=== PATIENT | male | born 1985 | race Caucasian/White ===

== ENCOUNTER 2017-02-11 12:49 | Emergency (ER) | payer BC, OTHER ==
[~2017-02-11] VITALS: Ht 182.9 cm; Wt 87.1 kg
[~2017-02-11 12:49] MED LIST: ACHD5005 PO
--- NOTE | 2017-02-11 14:03 | ED GU-Male ---
General Chief Complaint: -Male Stated Complaint: L TESTICLE PAIN/LUM Nursing Triage Note: PT CO OF LEFT TESTICLE HURTING, PT STATES HAS HAD A LUMP, BUT LUMP HAS BECOME PAINFUL AT TIMES, WORSE PAST 3 DAYS 06/05 Source: patient Exam Limitations: no limitations History of Present Illness Time seen by provider: 14:02 Initial Comments To ER with left testicular discomfort. This is been intermittent for about a month. States is not really painful just an unusual "full" sensation. Sometimes he feels a lump at the inferior aspect left testicle. No dysuria. Timing/Duration: intermittent Severity/Quality: moderate Location: scrotal Radiation: none Activities at Onset: none Prior Genitourinary Problems: none Associated Symptoms: dysuria Allergies and Home Medications Allergies Coded Allergies: No Known Drug Allergies (Unverified , 02/11/17) Home Medications No Active Prescriptions or Reported Meds Constitutional: see HPI EENTM: see HPI Respiratory: no symptoms reported Cardiovascular: no symptoms reported Genitourinary: see HPI Musculoskeletal: no symptoms reported Skin: no symptoms reported Past Hkcmhaf-Lqccll-Dijgix Hx Patient Social History Alcohol Use: Past History Recreational Drug Use: Yes (POT) Smoking Status: Current Everyday Smoker Type Used: Cigarettes Recent Foreign Travel: No Contact w/Someone Who Travel: No Recent Infectious Disease Expo: No Recent Hopitalizations: No Gastrointestinal Gastrointestinal Disorders: Gastroesophageal Reflux, Ulcer Physical Exam Vital Signs Vital Sign - Last 12Hours 02/11/17 13:40 Temp 98.2 Pulse 65 Resp 18 B/P (MAP) 159/89 Pulse Ox 99 Capillary Refill : Less Than 3 Seconds General Appearance: WD/WN, no apparent distress HEENT: PERRL/EOMI, normal ENT inspection Neck: non-tender, full range of motion Respiratory: no respiratory distress, no accessory muscle use Gastrointestinal: normal bowel sounds, non tender, soft Genital/Rectal: tenderness (left testicular tenderness without erythema of the scrotal skin or induration of the scrotal skin. Testicle itself is not enlarged.) Extremities: normal range of motion, non-tender Neurologic/Psychiatric: alert, normal mood/affect, oriented x 3 Skin: normal color, warm/dry Progress/Results/Core Measures Results/Orders Lab Results Laboratory Tests Test 02/11/17 14:11 Range/Units Urine Color YELLOW Urine Clarity SLIGHTLY CLOUDY Urine pH 8 5-9 Urine Specific Dixon 1.010 L 1.016-1.022 Urine Protein NEGATIVE NEGATIVE Urine Glucose (UA) NEGATIVE NEGATIVE Urine Ketones NEGATIVE NEGATIVE Urine Nitrite NEGATIVE NEGATIVE Urine Bilirubin NEGATIVE NEGATIVE Urine Urobilinogen NORMAL NORMAL MG/DL Urine Leukocyte Esterase 1+ H NEGATIVE Urine RBC (Auto) NEGATIVE NEGATIVE Urine RBC NONE /HPF Urine WBC 0-2 /HPF Urine Squamous Epithelial Cells NONE /HPF Urine Crystals NONE /LPF Urine Bacteria NEGATIVE /HPF Urine Casts NONE /LPF Urine Mucus NEGATIVE /LPF Urine Culture Indicated NO My Orders Orders - ARUNA JOHNSON APRN Ua Culture If Indicated (02/11/17 12:53) Us Scrotum (Testicle) [id number] (02/11/17 12:53) Neis Jimy Dna Urine Test (02/11/17 14:04) Chlamydia Dna Urine Test (02/11/17 14:04) Vital Signs/I&O Vital Sign - Last 12Hours 02/11/17 13:40 Temp 98.2 Pulse 65 Resp 18 B/P (MAP) 159/89 Pulse Ox 99 Blood Pressure Mean: 112 Departure Impression Impression: Primary Impression: Left testicular pain Disposition: 01 HOME, SELF-CARE Condition: Stable Departure-Patient Inst. Decision time for Depature: 14:43 Referrals: NO,LOCAL PHYSICIAN (PCP) Primary Care Physician STEVEN SILVERIO MD Patient Instructions: NO INSTRUCTIONS GIVEN Add. Discharge Instructions: 1. Follow-up with Dr. Silverio. Call his office Tuesday morning to make an appointment to be seen 2. Antibiotics in the meantime 3. Wear supportive underwear to keep the scrotum and testicles elevated 4. Return to ER for any worsening pain fevers or other concerns All discharge instructions reviewed with patient and/or family. Voiced understanding. Scripts Sulfamethoxazole/Trimethoprim (Bactrim Ds Tablet) 1 Each Tablet 1 EACH PO BID, #20 TAB Prov: ARUNA JOHNSON APRN 02/11/17 ARUNA JOHNSON APRN February 11, 2017 14:03
[2017-02-11 14:21] LABS: BILIRUBIN,URINE NEGATIVE (NEGATIVE); KETONES,URINE NEGATIVE (NEGATIVE); LEUKOCYTE ESTERASE ,URINE 1+ (NEGATIVE); NITRITE,URINE NEGATIVE (NEGATIVE); PH,URINE 8 (5-9); PROTEIN,URINE NEGATIVE (NEGATIVE); UROBILINOGEN,URINE NORMAL (NORMAL)
[2017-02-11 14:34] LABS: WBC,URINE 0-2 /HPF
[2017-02-11] MEDS ORDERED: SULF1TAB35 PO (14:44)
--- NOTE | 2017-02-11 15:04 | Diagnostic Imaging Report ---
INDICATION: Left testicular pain. FINDINGS: The right testicle measures 4.7 x 2.3 x 2.4 cm. The left testicle measures 4.4 x 2.7 x 3.1 cm. Both testicles are homogeneous in appearance. There is normal blood flow to both testicles. Epididymides appear normal. No hydroceles or varicoceles demonstrated. IMPRESSION: Normal bilateral testicular ultrasound. Dictated by: Dictated on workstation # [id number]
[2017-02-11 15:38] VITALS: BP 138/82
== END 2017-02-11 15:39 | disposition home or self-care (01) ==
LOC: EDUNIT# 12:49 → ER 12:51
DX: N50.812 Left testicular pain (principal); F17.210 Nicotine dependence, cigarettes, uncomplicated
CPT/HCPCS: 76870; 81000; 99282

== ENCOUNTER 2017-02-27 13:29 | Emergency (ER) | payer BC ==
[~2017-02-27] VITALS: Ht 182.9 cm; Wt 85.7 kg
[~2017-02-27 13:29] MED LIST changes: +SULF1TAB35 PO
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
--- NOTE | 2017-02-27 14:12 | Diagnostic Imaging Report ---
Left ankle at 2:06 p.m. INDICATION: Injury, ankle pain. Three views were obtained. There are no prior studies available for comparison. FINDINGS: There is no fracture, dislocation or acute bony abnormality evident. On the AP view, there is a faint density along the medial aspect of the talus. This cannot be identified on the other 2 projections. This finding is questionable at best for a small avulsion fracture. The ankle mortise is not widened and the talar dome is smooth. There is considerable soft tissue edema of the lateral malleolus. IMPRESSION: 1. There is no fracture identified with certainty. However, there is a questionable minute avulsion fracture along the medial aspect of the talus. Clinical followup is recommended. 2. There is considerable soft tissue edema over the lateral malleolus. Dictated by: Dictated on workstation # [id number]
[2017-02-27] MEDS ORDERED: TETANUS,DIPTH,PERTUSS P/F (BOOSTRIX) 0.5 ML VIAL IM STA (14:20)
[2017-02-27] MEDS ORDERED: HYDROcodone/APAP 5 MG/325 MG (LORTAB) TAB PO STA (14:20)
--- NOTE | 2017-02-27 14:38 | Diagnostic Imaging Report ---
EXAMINATION: Left foot at 245h. INDICATION: Injury ankle pain 3 views were obtained. There is no fracture, dislocation or acute bony abnormality evident. There is a small smooth calcific density measuring 5 x 9 MM immediately posterior to the medial aspect of the navicular bone. I suspect that this is an accessory ossicle, the os tibiale externum as opposed to an avulsion fracture. Soft tissues are unremarkable. IMPRESSION: There is no evidence for acute bony abnormality. Dictated by: Dictated on workstation # [id number]
[2017-02-27 15:15] VITALS: BP 150/100
== END 2017-02-27 15:16 | disposition home or self-care (01) ==
LOC: EDUNIT# 13:29 → ER 13:30
DX: S93.402A Sprain of unspecified ligament of left ankle, initial encounter (principal); F17.210 Nicotine dependence, cigarettes, uncomplicated; X50.0XXA Overexertion from strenuous movement or load, initial encounter; Y92.34 Swimming pool (public) as the place of occurrence of the external cause
CPT/HCPCS: 73610; 73630; 90715; 99283